=== PATIENT | male | born 1960 | race African-American/Black ===

== ENCOUNTER 2016-11-13 20:04 | Observation (INO) | payer MEDICAID ==
[~2016-11-13 20:04] MED LIST: NAPR500 PO; Z.0.NO CURRENT MEDS
[2016-11-13 20:05] VITALS: BP 188/124; PULSE 87; RESP 16; TEMP 98.4; O2SAT 99
--- NOTE | 2016-11-13 20:44 | PD ---
HPI Chief Complaint: Numbness/Tingling Time Seen by Provider: 20:39 Travel History International Travel<30 days: No Contact w/Intl Traveler<30days: No Traveled to known affect area: No History of Present Illness HPI 55-year-old male presents to the emergency department for evaluation of hypertension. He states that around 1915 this afternoon, he started with a headache behind his right eye. He states that he could not move his left arm for 15 minutes. He states the symptoms did resolve on their own. Patient reports history of hypertension. He is on lisinopril for hypertension. He also reports history of chronic back pain and is on Lortab. Patient is not on any anticoagulants. Patient states he had a similar episode occurred around 6 months ago where he cannot move his left arm. He states the symptoms eventually resolved on her own and he never followed up with a primary care physician or the emergency department. He states that his friends told him he could be having a TIA so he came to the emergency department concerned. He denies any history of CVA or TIA. Patient is a current tobacco user. Patient states headache is mild at this time. PFSH Past Medical History Gastrointestinal Disorders: Yes (ALCOHOLIC HAD GI BLEED 1 MONTH AGO, DID NOT GET F/U = NO MONEY) Ulcer: Yes (RECTAL BLEEDING ONE MONTH AGO. CAME TO ED. EVAL BY DR RAMACHANDRAN. TOLD TO GET F) Social History Alcohol Use: Yes (3 CANS BEER (ABOUT AVERAGE PER PATIENT)) Tobacco Use: Yes (1 PK PER DAY 27 YEARS) Substance Use: No Allergies-Medications (Allergen,Severity, Reaction): Coded Allergies: No Known Allergies (Verified , 11/13/16) Reported Meds & Prescriptions Reported Meds & Active Scripts Active Naprosyn (Naproxen) 500 Mg Tab 500 Mg PO BID Reported No Current Meds (Miscellaneous Medication) Misc Review of Systems Except as stated in HPI: all other systems reviewed are Neg Physical Exam Narrative GENERAL: Well-nourished, well-developed male patient, afebrile. SKIN: Focused skin assessment warm/dry. HEAD: Normocephalic. Atraumatic. EYES: No scleral icterus. No injection or drainage. NECK: Supple, trachea midline. No JVD or lymphadenopathy. CARDIOVASCULAR: Regular rate and rhythm without murmurs, gallops, or rubs. Bilateral radial and pedal pulses 2+. RESPIRATORY: Breath sounds equal bilaterally. No accessory muscle use. Lungs sounds are clear to auscultation GASTROINTESTINAL: Abdomen soft, non-tender, nondistended. MUSCULOSKELETAL: No cyanosis, or edema. BACK: Nontender without obvious deformity. No CVA tenderness. NEUROLOGICAL: Awake and alert. Cranial nerves II through XII intact. Motor and sensory grossly within normal limits. Five out of 5 muscle strength in all muscle groups. Normal speech. Finger to nose is normal bilaterally. Heel-to- liang is normal bilaterally. No focal neurological deficits. Data Data Last Documented VS Vital Signs Date Time Temp Pulse Resp B/P Pulse Ox O2 Delivery O2 Flow Rate FiO2 11/13/16 20:58 75 20 175/104 98 Room Air 11/13/16 20:05 98.4 Orders Electrocardiogram (11/13/16 20:38) Prothrombin Time / Inr (Pt) (11/13/16 20:38) Act Partial Throm Time (Ptt) (11/13/16 20:38) Complete Blood Count With Diff (11/13/16 20:38) Comprehensive Metabolic Panel (11/13/16 20:38) Creatine Kinase (Cpk) (11/13/16 20:38) Troponin I (11/13/16 20:38) Ct Brain W/O Iv Contrast(Rout) (11/13/16 20:38) Ecg Monitoring (11/13/16 20:38) Iv Access Insert/Monitor (11/13/16 20:38) Oximetry (11/13/16 20:38) Sodium Chloride 0.9% Flush (Ns Flush) (11/13/16 20:45) Aspirin (Aspirin) (11/13/16 22:15) Labs Laboratory Tests Test 11/13/16 21:10 White Blood Count 6.3 TH/MM3 Red Blood Count 5.65 MIL/MM3 Hemoglobin 15.9 GM/DL Hematocrit 48.4 % Mean Corpuscular Volume 85.7 FL Mean Corpuscular Hemoglobin 28.2 PG Mean Corpuscular Hemoglobin 32.9 % Concent Red Cell Distribution Width 13.6 % Platelet Count 217 TH/MM3 Mean Platelet Volume 7.3 FL Neutrophils (%) (Auto) 34.0 % Lymphocytes (%) (Auto) 52.8 % Monocytes (%) (Auto) 7.3 % Eosinophils (%) (Auto) 4.8 % Basophils (%) (Auto) 1.1 % Neutrophils # (Auto) 2.1 TH/MM3 Lymphocytes # (Auto) 3.3 TH/MM3 Monocytes # (Auto) 0.5 TH/MM3 Eosinophils # (Auto) 0.3 TH/MM3 Basophils # (Auto) 0.1 TH/MM3 CBC Comment DIFF FINAL Differential Comment Prothrombin Time 10.6 SEC Prothromb Time International 1.0 RATIO Ratio Activated Partial 26.6 SEC Thromboplast Time Sodium Level 141 MEQ/L Potassium Level 3.8 MEQ/L Chloride Level 106 MEQ/L Carbon Dioxide Level 26.8 MEQ/L Anion Gap 8 MEQ/L Blood Urea Nitrogen 15 MG/DL Creatinine 1.27 MG/DL Estimat Glomerular Filtration 71 ML/MIN Rate Random Glucose 95 MG/DL Calcium Level 9.6 MG/DL Total Bilirubin 0.2 MG/DL Aspartate Amino Transf 23 U/L (AST/SGOT) Alanine Aminotransferase 39 U/L (ALT/SGPT) Alkaline Phosphatase 102 U/L Total Creatine Kinase 132 U/L Troponin I LESS THAN 0.02 NG/ML Total Protein 7.6 GM/DL Albumin 3.9 GM/DL [facility] Medical Decision Making Medical Screen Exam Complete: Yes Emergency Medical Condition: Yes Medical Record Reviewed: Yes Interpretation(s) ct brain - CONCLUSION: Unremarkable noncontrast CT. Differential Diagnosis TIA versus CVA versus electrolyte abnormality versus intracranial hemorrhage Narrative Course 55-year-old male presents to the emergency department for evaluation of a headache and inability with the left arm that lasted for approximately 15 minutes. He reports a mild headache at this time and states that he has no issues moving his left arm. Neurological exam shows no focal deficits. EKG, CBC, CMP, CK, troponin, PT, PTT/INR, CT of the brain are ordered and pending. EKG shows sinus rhythm, heart rate 83, no acute ST changes. CBC shows no acute abnormality. CMP is unremarkable. CK is 132. Troponin is less than 0.02. Coags are unremarkable. CT of the brain is unremarkable. Patient is given aspirin 325 mg by mouth. Patient will be brought to the hospital for 23 observation for TIA. The patient verbalizes agreement and understanding. He states his primary care physician is Dr. Valdes. [facility] is paged for admission. Dr. Samano accepted admission. Diagnosis Primary Impression: TIA (transient ischemic attack) Qualified Code: G45.9 - Transient cerebral ischemia, unspecified type Admitting Information Admitting Physician Requests: Observation Meliza Oconnor November 13, 2016 20:44
[2016-11-13] MEDS ORDERED: SODIUM CHLORIDE 0.9% FLUSH 10 ML FLUSH IVF PRN (20:45)
[2016-11-13 20:58] VITALS: BP 175/104; PULSE 75; RESP 20; O2SAT 98
[2016-11-13 21:24] LABS: AUTOMATED NEUTROPHIL # 2.1 TH/MM3 (1.8-7.7); BASOPHIL # 0.1 TH/MM3 (0-0.2); BASOPHIL % 1.1 % (0.0-2.0); EOSINOPHIL # 0.3 TH/MM3 (0-0.4); EOSINOPHIL % 4.8 % (0.0-4.0); HEMATOCRIT 48.4 % (39.0-51.0); HEMO FLAGS DIFF FINAL; LYMPH % 52.8 % (9.0-44.0); LYMPHOCYTE # 3.3 TH/MM3 (1.0-4.8); MEAN CELL VOLUME 85.7 FL (80.0-100.0); MEAN CORPUSCULAR HEMOGLOBIN 28.2 PG (27.0-34.0); MEAN CORPUSCULAR HGB CONC 32.9 % (32.0-36.0); MONO % 7.3 % (0.0-8.0); PLATELET COUNT 217 TH/MM3 (150-450); RED BLOOD COUNT 5.65 MIL/MM3 (4.50-5.90); RED CELL DISTRIBUTION WIDTH 13.6 % (11.6-17.2); WHITE BLOOD COUNT 6.3 TH/MM3 (4.0-11.0)
[2016-11-13 21:38] LABS: APTT (PATIENT) 26.6 SEC (24.3-30.1); PROTHROMBIN TIME - PATIENT 10.6 SEC (9.8-11.6)
--- NOTE | 2016-11-13 21:39 | RADRPT ---
EXAM DATE/TIME: 11/13/2016 21:27 1 [facility] COMPARISON: No previous studies available for comparison. INDICATIONS : Left arm numbness with elevated blood pressure. RADIATION DOSE: 37.14 CTDIvol (mGy) MEDICAL HISTORY : None SURGICAL HISTORY : None. ENCOUNTER: Initial ACUITY: 1 week PAIN SCALE: 5/10 LOCATION: cranial TECHNIQUE: Multiple contiguous axial images were obtained of the head. Using automated exposure control and adj ustment of the mA and/or kV according to patient size, radiation dose was kept as low as reasonably a chievable to obtain optimal diagnostic quality images. FINDINGS: CEREBRUM: The ventricles are normal for age. No evidence of midline shift, mass lesion, hemorrhage or acute in farction. No extra-axial fluid collections are seen. POSTERIOR FOSSA: The cerebellum and brainstem are intact. The 4th ventricle is midline. The cerebellopontine angle i s unremarkable. EXTRACRANIAL: The visualized portion of the orbits is intact. SKULL: The calvaria is intact. No evidence of skull fracture. CONCLUSION: Unremarkable noncontrast CT. Toni Levy MD on November 13, 2016 at 21:37 Board Certified Radiologist. This report was verified electronically.
[2016-11-13 22:01] LABS: ANION GAP 8 MEQ/L (5-15); AST (GOT) 23 U/L (15-37); BICARBONATE 26.8 MEQ/L (21.0-32.0); BLOOD UREA NITROGEN 15 MG/DL (7-18); CHLORIDE 106 MEQ/L (98-107); GLOMERULAR FILTRATION RATE 71 ML/MIN (>89); POTASSIUM 3.8 MEQ/L (3.5-5.1); SODIUM (NA) 141 MEQ/L (136-145)
[2016-11-13 22:06] LABS: ALKALINE PHOSPHATASE 102 U/L (45-117); ALT (GPT) 39 U/L (12-78); CREATINE KINASE 132 U/L (39-308); TOTAL BILIRUBIN ADULT 0.2 MG/DL (0.2-1.0)
[2016-11-13] MEDS ORDERED: ASPIRIN 325 MG TAB PO ONE (22:15)
[2016-11-14] VITALS (9 sets, daily range): BP systolic 122–156; BP diastolic 88–102; PULSE 70–89; RESP 18–20; TEMP 97.2–98.2; O2SAT 94–98
[2016-11-14] MEDS ORDERED: SODIUM CHLOR 0.9% 1000 ML INJ 1,000 ML IV SCH (01:57)
[2016-11-14] MEDS ORDERED: ONDANSETRON HCL 4 MG/2 ML VIAL IVP PRN (02:00)
[2016-11-14] MEDS ORDERED: SODIUM CHLORIDE 0.9% FLUSH 10 ML FLUSH IV FLUSH PRN (02:00)
[2016-11-14] MEDS ORDERED: NALOXONE HCL 0.4 MG/ML AMP IV PRN (02:00)
[2016-11-14] MEDS ORDERED: ACETAMINOPHEN 325 MG TAB PO PRN (02:00)
--- NOTE | 2016-11-14 02:29 | HHI.HP ---
HPI Service [facility] Hospitalists Primary Care Physician Unknown Admission Diagnosis TIA Diagnoses: Chief Complaint: Right-sided headache with left upper extremity weakness Travel History International Travel<30 Days: No Contact w/Intl Traveler <30 Da: No Traveled to Known Affected Are: No History of Present Illness This is a pleasant 55-year-old Afro-Italian gentleman with past medical history which includes alcoholism, GI bleeding and hypertension. Patient reports at 7:15 PM on 11/13/2016 he began to have a right sided headache located behind his right eye described as severe sharp pressure sensation. After the headache he began to have numbness to his left hand followed by inability to move his left upper extremity. The event lasted approximately 15 minutes and resolved spontaneously. Patient reports he had a similar event approximally 5- 6 months ago where he had right-sided headache inability to move his left upper extremity at that time he had visual changes the event lasted 30 minutes also resolved spontaneously- he did not seek treatment at that time. Patient discussed his events with his friend who is a nurse person and told him to come to the emergency department for further evaluation and treatment concerning for TIA. Patient denies history of CVA or TIA in the past. Patient denies chest pain, shortness of breath, nausea, vomiting, diarrhea, constipation, fevers, chills, visual changes or loss of consciousness. Review of Systems Except as stated in HPI: all other systems reviewed are Neg Past Family Social History Past Medical History alcoholism, GI bleeding and hypertension. Past Surgical History denies prior surgery Reported Medications Lisinopril 20 mg by mouth daily Allergies: Coded Allergies: No Known Allergies (Verified , 11/13/16) Active Ordered Medications Current Medications Medications (Trade) Dose Ordered Sig/Nhi Route Start Time Stop Time Status Last Admin (NS 1000 ml Inj) 1,000 ml @ 50 mls/hr Q20H IV 11/14/16 01:57 (NS Flush) 2 ml UNSCH PRN IV FLUSH 11/14/16 02:00 (NS Flush) 2 ml BID IV FLUSH 11/14/16 09:00 (Tylenol) 650 mg Q4H PRN PO 11/14/16 02:00 (Zofran Inj) 4 mg Q6H PRN IVP 11/14/16 02:00 (Narcan Inj) 0.4 mg UNSCH PRN IV 11/14/16 02:00 (Ecotrin Ec) 325 mg DAILY PO 11/14/16 09:00 Family History Mother secondary to [place] patient does not recall age Father secondary to [place] unknown type patient does not recall age Social History ETOH history of alcoholism reports that he drinks only 1 beer occasionally now tobacco use 0.5 PPD since he was a teenager denies illicit drug use Physical Exam Vital Signs Vital Signs Date Time Temp Pulse Resp B/P Pulse Ox O2 Delivery O2 Flow Rate FiO2 11/14/16 02:08 97 11/14/16 00:58 78 18 122/88 97 Room Air 11/13/16 20:58 75 20 175/104 98 Room Air 11/13/16 20:05 98.4 87 16 188/124 99 Room Air Physical Exam GENERAL: This is a well-nourished, well-developed patient, in no apparent distress. SKIN: No rashes, ecchymoses or lesions. Cool and dry. HEAD: Atraumatic. Normocephalic. No temporal or scalp tenderness. EYES: Pupils equal round and reactive. Extraocular motions intact. No scleral icterus. No injection or drainage. CARDIOVASCULAR: Regular rate and rhythm without murmurs, gallops, or rubs. RESPIRATORY: Clear to auscultation. Breath sounds equal bilaterally. No wheezes , rales, or rhonchi. GASTROINTESTINAL: Abdomen soft, non-tender, nondistended. No hepato-splenomegaly , or palpable masses. No guarding. MUSCULOSKELETAL: Extremities without clubbing, cyanosis, or edema. No joint tenderness, effusion, or edema noted. No calf tenderness. Negative Homans sign bilaterally. NEUROLOGICAL: Awake and alert. No focal deficits. Motor and sensory grossly within normal limits. 4-5 out of 5 muscle strength in all muscle groups. Normal speech. Laboratory Laboratory Tests Test 11/13/16 21:10 White Blood Count 6.3 Red Blood Count 5.65 Hemoglobin 15.9 Hematocrit 48.4 Mean Corpuscular Volume 85.7 Mean Corpuscular Hemoglobin 28.2 Mean Corpuscular Hemoglobin 32.9 Concent Red Cell Distribution Width 13.6 Platelet Count 217 Mean Platelet Volume 7.3 Neutrophils (%) (Auto) 34.0 Lymphocytes (%) (Auto) 52.8 Monocytes (%) (Auto) 7.3 Eosinophils (%) (Auto) 4.8 Basophils (%) (Auto) 1.1 Neutrophils # (Auto) 2.1 Lymphocytes # (Auto) 3.3 Monocytes # (Auto) 0.5 Eosinophils # (Auto) 0.3 Basophils # (Auto) 0.1 CBC Comment DIFF FINAL Differential Comment Prothrombin Time 10.6 Prothromb Time International 1.0 Ratio Activated Partial 26.6 Thromboplast Time Sodium Level 141 Potassium Level 3.8 Chloride Level 106 Carbon Dioxide Level 26.8 Anion Gap 8 Blood Urea Nitrogen 15 Creatinine 1.27 Estimat Glomerular Filtration 71 Rate Random Glucose 95 Calcium Level 9.6 Total Bilirubin 0.2 Aspartate Amino Transf 23 (AST/SGOT) Alanine Aminotransferase 39 (ALT/SGPT) Alkaline Phosphatase 102 Total Creatine Kinase 132 Troponin I LESS THAN 0.02 Total Protein 7.6 Albumin 3.9 Result Diagram: 11/13/16210911/13/162109 Imaging Last Impressions Head CT 11/13/162037 Signed Impressions: Service Date/Time: Sunday, November 13, 2016 21:27 - CONCLUSION: Unremarkable noncontrast CT. Toni Levy MD Assessment and Plan Problem List: (1) TIA (transient ischemic attack) ICD Code: G45.9 Status: Acute Assessment and Plan This is a pleasant 55-year-old Afro-Italian gentleman with past medical history which includes alcoholism in the past, GI bleeding and hypertension. Patient reports on 7:15 PM on 11/13/2016 he began to have a right sided headache located behind his right eye described as sharp pressure sensation after the headache he began to have numbness to his left hand followed by inability to move his left upper extremity. The event lasted approximately 15 minutes and resolved spontaneously. Left upper extremity focal weakness with right sided headache- acute TIA versus CVA versus complex migraine- acute CT of the head reviewed no acute findings MRI brain without contrast ordered and pending Ultrasound bilateral carotid arteries ordered and pending Echocardiogram ordered and pending Bedrest with Head of bed flat Continuous telemetry monitoring Lipid profile in a.m., hemoglobin A1c in a.m. Permissive hypertension Neurology consultation placed Serial neuro checks bedside swallow eval Hypertension- chronic currently on Lisinopril at home- will hold lisinopril at this time and allow permissive hypertension in light of recent CVA versus TIA History of EtOH abuse CIWA protocol with folic acid and thiamine monitor for signs and symptoms of withdrawal DVT prophylaxis with SCDs will avoid chemical DVT prophylaxis in light of recent GI bleed Discussed with ER provider, nursing, patient and Dr. Samano Attending Statement The exam, history, and the medical decision-making described in the above note were completed with the assistance of the mid-level provider. I reviewed and agree with the findings presented. I attest that I had a [id number] encounter with the patient on the same day, and personally performed and documented my assessment and findings in the medical record. Improving right sided headache and resolved left-sided weakness. Blood pressure 133/90 and heart rate 77 respiratory 20 temperature 98 HEENT normocephalic atraumatic pupils equally reactive to light CVS regular rate and rhythm S1 and S2 Lungs clear to auscultation Neuro exam: Nonfocal alert and oriented cranial nerves intact motor and sensorium within normal limits. Head CT unremarkable EKG with no A. fib TIA versus A. fib continue aspirin, permissive hypertension and stroke workup. Risk factor modification Problem Qualifiers (1) TIA (transient ischemic attack): Qualified Code: G45.9 - Transient cerebral ischemia, unspecified type Vera Abrams November 14, 2016 02:29 Rush Chicas MD November 14, 2016 10:06
[2016-11-14 06:15] LABS: HDL CHOLESTEROL 42.3 MG/DL (40.0-60.0); LDL CHOLESTEROL 169 MG/DL (0-99)
[2016-11-14] MEDS ORDERED: LORazepam 2 MG/ML VIAL IV PUSH ONE (09:00)
[2016-11-14] MEDS: ASPIRIN EC 325 MG TABEC PO SCH (10:25)
[2016-11-14] MEDS: SODIUM CHLORIDE 0.9% FLUSH 10 ML FLUSH IV FLUSH SCH ×2 (10:25→22:48)
--- NOTE | 2016-11-14 10:45 | RADRPT ---
EXAM DATE/TIME: 11/14/2016 09:41 [facility] COMPARISON: No previous studies available for comparison. INDICATIONS : Left upper extremity weakness. MEDICAL HISTORY : Hypertension. Arthritis. SURGICAL HISTORY : None. ENCOUNTER: Subsequent ACUITY: 2 day PAIN SCORE: 0/10 LOCATION: head. Please note a normal MRA of the brain does not entirely exclude the possibility of a small aneurysm, nor the possibility of distal intracranial vessel disease. TECHNIQUE: 3D time of flight MRA was performed. Source images, multiplanar STS MIP, and 3D volume MIP reconstru ctions were reviewed. FINDINGS: There is excellent visualization of the major intracranial arteries out to the second-order branch ve ssels. There is no evidence for aneurysm, vessel truncation or stenosis, and no evidence for vascula r malformation. The middle, anterior and posterior cerebral arteries appear normal. Anterior communic ating artery noted. No posterior communicating arteries. Vertebrobasilar junction normal CONCLUSION: 1. No stenosis or aneurysm. 2. Normal variants. Jorge Hanks MD on November 14, 2016 at 10:42 Board Certified Radiologist. This report was verified electronically.
--- NOTE | 2016-11-14 10:48 | RADRPT ---
EXAM DATE/TIME: 11/14/2016 09:41 [facility] COMPARISON: No previous studies available for comparison. INDICATIONS : Left upper extremity weakness. MEDICAL HISTORY : Hypertension. Arthritis. SURGICAL HISTORY : None. ENCOUNTER: Subsequent ACUITY: 2 day PAIN SCORE: 0/10 LOCATION: head. TECHNIQUE: Multiplanar, multisequence MRI of the brain was performed without contrast. FINDINGS: CEREBRUM: The ventricles are normal for age. No evidence of midline shift, mass lesion, hemorrhage or acute in farction. No extraaxial fluid collections are seen. The pituitary gland and suprasellar cistern are normal in configuration. WHITE MATTER: Scattered foci of bright T2 signal abnormalities are seen in the white matter and brainstem. POSTERIOR FOSSA: The cerebellum is intact. The 4th ventricle is midline. The cerebellopontine angle is unremarkable. The cerebellar tonsils are normal in position. DIFFUSION IMAGING: No focal areas of restricted diffusion are seen. No evidence of acute infarction. EXTRACRANIAL: The visualized portions of the orbits and paranasal sinuses are unremarkable. CONCLUSION: 1. Chronic ischemic small vessel vasculopathy with similar changes in the brainstem. 2. No acute infarction. Jorge Hanks MD on November 14, 2016 at 10:44 Board Certified Radiologist. This report was verified electronically.
--- NOTE | 2016-11-14 11:43 | RADRPT ---
EXAM DATE/TIME: 11/14/2016 10:32 [facility] COMPARISON: No previous studies available for comparison. INDICATIONS : Transient ischemic attack. MEDICAL HISTORY : Hypertension. Ulcer. GI bleed. Low back tear. HX of ETOH abuse. SURGICAL HISTORY : ENCOUNTER: Initial ACUITY: 1 day PAIN SCORE: 0/10 LOCATION: Bilateral neck PEAK SYSTOLIC VELOCITIES (cm/sec): ICA/CCA RATIO: Right: 1.5 Left: 1.0 ICA: Right: 86 Left: 87 CCA: Right: 56 Left: 84 ECA: Right: 49 Left: 47 VERTEBRAL: Right: 53 antegrade Left: 49 antegrade Elevated flow velocities and ICA/CCA ratios have been found to correlate with increased degrees of vessel stenosis, calculated as percentage of diameter relative to a normal segment of distal ICA/CCA FINDINGS: RIGHT CAROTID: No significant stenosis is visualized. The waveforms are within normal limits. LEFT CAROTID: No significant stenosis is visualized. The waveforms are within normal limits. VERTEBRAL ARTERIES: Antegrade flow is seen in both vertebral arteries. MISCELLANEOUS: None. CONCLUSION: No evidence of flow-limiting carotid stenosis. Salomon Mora MD on November 14, 2016 at 11:41 Board Certified Radiologist. This report was verified electronically.
[2016-11-14] MEDS: amLODIPine BESYLATE 5 MG TAB PO SCH (14:49)
[2016-11-14 16:32] LABS: HEMOGLOBIN A1b 0.9 %; HEMOGLOBIN Ao 85.1 %; HEMOGLOBIN LA1C 1.9 %; HEMOGLOBIN P3 3.7 %
[2016-11-14] MEDS ORDERED: LORazepam 2 MG TAB PO PRN (19:30)
[2016-11-14] MEDS ORDERED: LORazepam 2 MG/ML VIAL IV PUSH PRN ×4 (19:30)
[2016-11-14] MEDS ORDERED: FLUMAZENIL 0.5 MG/5 ML VIAL IV PUSH PRN (19:30)
[2016-11-14] MEDS ORDERED: LORazepam 1 MG TAB PO PRN (19:30)
--- NOTE | 2016-11-14 19:37 | EKG ---
Date Performed: 11/13/2016 Time Performed: 20:56:14 PTAGE: 55 years EKG: Sinus rhythm POSSIBLE LEFT ATRIAL ENLARGEMENT POSSIBLE RIGHT VENTRICULAR CONDUCTION DELAY BORDERLINE ECG NO PREVIOUS TRACING DOCTOR: Malena Aguayo Interpretating Date/Time 11/14/2016 19:36:33
[2016-11-14] MEDS ORDERED: ATORVASTATIN 20 MG TAB PO SCH (21:00)
[2016-11-15 00:24] VITALS: BP 122/86; PULSE 80; RESP 17; TEMP 97.8; O2SAT 96
[2016-11-15 04:23] VITALS: BP 110/77; PULSE 82; RESP 17; TEMP 97.3; O2SAT 93
[2016-11-15 04:23] LABS: AUTOMATED NEUTROPHIL # 2.5 TH/MM3 (1.8-7.7); BASOPHIL # 0.1 TH/MM3 (0-0.2); BASOPHIL % 0.9 % (0.0-2.0); EOSINOPHIL # 0.3 TH/MM3 (0-0.4); EOSINOPHIL % 4.9 % (0.0-4.0); HEMATOCRIT 50.6 % (39.0-51.0); HEMO FLAGS DIFF FINAL; LYMPH % 49.5 % (9.0-44.0); LYMPHOCYTE # 3.2 TH/MM3 (1.0-4.8); MEAN CELL VOLUME 85.2 FL (80.0-100.0); MEAN CORPUSCULAR HEMOGLOBIN 28.2 PG (27.0-34.0); MEAN CORPUSCULAR HGB CONC 33.1 % (32.0-36.0); NEUT % 37.7 % (16.0-70.0); PLATELET COUNT 249 TH/MM3 (150-450); RED BLOOD COUNT 5.93 MIL/MM3 (4.50-5.90); RED CELL DISTRIBUTION WIDTH 13.6 % (11.6-17.2); WHITE BLOOD COUNT 6.5 TH/MM3 (4.0-11.0)
[2016-11-15 04:39] LABS: POTASSIUM 3.8 MEQ/L (3.5-5.1)
--- NOTE | 2016-11-15 05:29 | MB ---
cc: SOBEIDA DUFF M.D. DATE OF CONSULTATION 11/14/2016 REASON FOR CONSULTATION Left-sided weakness. HISTORY OF PRESENT ILLNESS Mr. Abdi is a 55-year-old man who was well until he suddenly developed a sharp pain in the right eye and then got weak in the left arm and left hand. This has since improved. He is back to normal now. He had no weakness of the leg, no slurred speech or other changes. Denies any prior history of migraine headaches. PAST MEDICAL HISTORY Remarkable for - 1. History of alcohol abuse. 2. Hypertension. 3. GI bleed. MEDICATIONS Lisinopril 20 mg daily. ALLERGIES None known. SOCIAL HISTORY Drinks alcohol daily. He does smoke. Denies drug abuse. NEUROLOGIC EXAMINATION Blood pressure is 140/93, pulse 80, respiratory rate is 20, temperature 99 degrees. Higher cortical functions normal. Cranial nerves II-XII are normal in detail. On motor exam he has got 5/5 strength of all groups in both upper and lower extremities. There is no drift. Fine motor skills normal. Reflexes are symmetric. IMAGING STUDIES MRI OF THE BRAIN - Within normal limits. MRA BRAIN - Normal. CAROTID ULTRASOUND - Normal. CT BRAIN - Normal. EKG - Sinus rhythm, possible left atrial enlargement. LABORATORY DATA The white count is 6300, hemoglobin 15.9, hematocrit 48%, platelets 217,000. PT 10.6, INR 1, APTT 26.6. Sodium is 141, potassium 3.8, chloride 106, CO2 26.8, BUN is 15, creatinine 1.27. Cholesterol 257, LDL 169, triglycerides 230. IMPRESSION Probable TIA, now resolved. RECOMMENDATIONS 1. Aspirin 325 mg daily. 2. Because of the high LDL, recommend statin therapy as well. 3. Given his relative young age, we will also check hypercoagulable workup. 4. Also recommend evaluation by cardiology as an outpatient to consider a transesophageal echocardiogram if the patient is stable neurologically. 5. We will obtain an echocardiogram. If that is fine with no source of emboli and the patient is stable, he can be discharged home. 6. Followup with me in 2 weeks as an outpatient. MD MOISE Allison/CHAPIS /4:51 PM /5:22 AM
[2016-11-15 07:56] VITALS: BP 127/80; PULSE 84; RESP 21; TEMP 97.5; O2SAT 93
[2016-11-15 08:00] VITALS: PULSE 76
--- NOTE | 2016-11-15 08:24 | EC ---
Study Study Date:11/14/2016 STUDY CONCLUSIONS SUMMARY - Procedure narrative: Image quality was poor. The study was technically limited due to poor acoustic window availability. - Left ventricle: The cavity size was normal. Systolic function was probably normal. In limited views, the estimated ejection fraction was in the range of 55% to 60%. Although no diagnostic regional wall motion abnormality was identified, this possibility cannot be completely excluded on the basis of this study. If LV function is below 40, please consider prescribing an ACEI or ARB or document rationale for non-use. PROCEDURE DATA STUDY STATUS: Elective. Procedure: Transthoracic echocardiography. Image quality was poor. The study was technically limited due to poor acoustic window availability. Scanning was performed from the parasternal, apical, and subcostal acoustic windows. Study completion: The patient tolerated the procedure well. Transthoracic echocardiography. M-mode, complete 2D, complete spectral Doppler, and color Doppler. Patient status: Inpatient. CARDIAC ANATOMY LEFT VENTRICLE: The cavity size was normal. Systolic function was probably normal. In limited views, the estimated ejection fraction was in the range of 55% to 60%. Although no diagnostic regional wall motion abnormality was identified, this possibility cannot be completely excluded on the basis of this study. AORTIC VALVE: The valve appears to be grossly normal. Probably trileaflet. Doppler: There was no stenosis. No significant regurgitation. Valve area: 2.76cm^2 (Vmax). MITRAL VALVE: The valve appears to be grossly normal. Doppler: There was no evidence for stenosis. No significant regurgitation. LEFT ATRIUM: The atrium was normal in size. RIGHT VENTRICLE: Not visualized. PULMONIC VALVE: Not visualized. TRICUSPID VALVE: Not well visualized. BASIC MEASUREMENTS ADULT NORMAL Left ventricle LV internal dimension, ED, chordal level, *40.1 mm 43-52 PLAX LV internal dimension, ES, chordal level, 29.5 mm 23-38 PLAX Fractional shortening, chordal level, PLAX *26 % >29 LV posterior wall thickness, ED 8.5 mm IVS/LVPW ratio, ED 1.03 <1.3 Ventricular septum Septal thickness, ED 8.77 mm Aortic valve Leaflet separation 20 mm 15-26 BASIC MEASUREMENTS ADULT NORMAL Aortic valve Leaflet separation 20 mm 15-26 Aorta Root diameter, ED 29 mm 20-37 Left atrium Anterior-posterior dimension, ES 25 mm 19-40 LA/aortic root ratio 0.86 DOPPLER MEASUREMENTS ADULT NORMAL Aortic valve Peak velocity, S 86.9 cm/s Valve area, Vmax 2.76 cm^2 Mitral valve Peak E-wave velocity 42.9 cm/s Peak A-wave velocity 58.2 cm/s Deceleration time 194 ms 150-230 Peak E/A ratio 0.7 Pulmonic valve Peak velocity, S 89.6 cm/s LEGEND: Mean values are shown as u=mean value. Asterisk (*) arnett values outside specified normal range. Prepared and signed by Shant Gomez [id number]
[2016-11-15] MEDS ORDERED: FOLIC ACID 1 MG TAB PO SCH (09:00)
[2016-11-15] MEDS ORDERED: THIAMINE HCL 100 MG TAB PO SCH (09:00)
[2016-11-15] MEDS ORDERED: ATOR20TA15 PO (09:08)
[2016-11-15] MEDS ORDERED: AMLO5 PO (09:08)
[2016-11-15] MEDS ORDERED: ASPI325T27 PO (09:08)
--- NOTE | 2016-11-15 09:15 | HHI.PR ---
Subjective Remarks Follow-up for TIA. The patient reports that symptoms have resolved. He feels well and wants to go home. He denies any weakness, numbness, tingling, vision problems, headache, swallowing difficulties, speech difficulties. He states he was taking medicine for blood pressure, confirmed with RN, lisinopril 20 mg. He states that he has a follow-up appointment coming up with his PCP. Also discussed with the patient's fiance over the phone per patient's request. Objective Vitals Vital Signs Date Time Temp Pulse Resp B/P Pulse Ox O2 Delivery O2 Flow Rate FiO2 11/15/16 07:56 97.5 84 21 127/80 93 11/15/16 04:23 97.3 82 17 110/77 93 11/15/16 00:24 97.8 80 17 122/86 96 11/14/16 20:33 98.2 89 18 133/93 94 11/14/16 16:12 98.2 80 20 140/93 96 11/14/16 11:09 98.0 81 20 138/92 96 I/O 11/14/16 11/14/16 11/14/16 11/15/16 11/15/16 11/15/16 07:00 15:00 23:00 07:00 15:00 23:00 Intake Total 1200 ml 200 ml Output Total 1200 ml Balance 0 ml 200 ml Intake Oral 800 ml 200 ml IV Total 400 ml Output Urine Total 1200 ml # Bowel Movements 1 Result Diagram: 11/15/16 0335 11/15/16 0335 Imaging Last Impressions Head Magnetic Resonance Angiography 11/14/16 0000 Signed Impressions: Service Date/Time: Monday, November 14, 2016 09:41 - CONCLUSION: 1. No stenosis or aneurysm. 2. Normal variants. Jorge Hanks MD Carotid Artery Ultrasound 11/14/16 0000 Signed Impressions: Service Date/Time: Monday, November 14, 2016 10:32 - CONCLUSION: No evidence of flow-limiting carotid stenosis. Salomon Mora MD Brain MRI 11/14/16 0000 Signed Impressions: Service Date/Time: Monday, November 14, 2016 09:41 - CONCLUSION: 1. Chronic ischemic small vessel vasculopathy with similar changes in the brainstem. 2. No acute infarction. Jorge Hanks MD Head CT [id number] Signed Impressions: Service Date/Time: Sunday, November 13, 2016 21:27 - CONCLUSION: Unremarkable noncontrast CT. Toni Levy MD Objective Remarks GENERAL: Well-developed well-nourished. In no acute distress. SKIN: Warm and dry. No lesions noted. HEENT: Normocephalic. Pupils equal and round. Mucous membranes pink and moist. CARDIOVASCULAR: Regular rate and rhythm. No murmur appreciated. RESPIRATORY: No accessory muscle use. Clear to auscultation. Breath sounds equal bilaterally. GASTROINTESTINAL: Abdomen soft, non-tender, nondistended. Bowel sounds x4. MUSCULOSKELETAL: No obvious deformities. No clubbing or cyanosis. No edema. Positive straight leg raise on the right. NEUROLOGICAL: Awake and alert. No focal neurological deficits. Moves upper and lower extremities spontaneously. Normal speech. Strength 5/5 in all extremities except for right lower extremity which is limited due to pain. PSYCHIATRIC: Appropriate mood and affect; insight and judgment normal. A/P Problem List: (1) TIA (transient ischemic attack) ICD Code: G45.9 Status: Acute Assessment and Plan This is a pleasant 55-year-old Afro[place] gentleman with past medical history which includes alcoholism in the past, GI bleeding and hypertension. Patient reports on 7:15 PM on 11/13/2016 he began to have a right sided headache located behind his right eye described as sharp pressure sensation after the headache he began to have numbness to his left hand followed by inability to move his left upper extremity. The event lasted approximately 15 minutes and resolved spontaneously. TIA Reviewed: CT of the head no acute findings. MRI brain with chronic ischemic small vessel changes, no acute infarction. Ultrasound bilateral carotid arteries with no evidence of stenosis. Echocardiogram with normal systolic function EF 5560 %. Lipid profile with elevated LDL and triglycerides. MRI brain with no stenosis or aneurysm. Hemoglobin A1c 5.9. Neurology consulted, and agrees with TIA, cleared for discharge and outpatient follow-up Serial neuro checks PT/OT/ST Aspirin and statin Hypertension- chronic Lisinopril dose was not reconciled initially. Patient was started on amlodipine with good effect, we'll discontinue lisinopril and continue on amlodipine. History of EtOH abuse CIWA protocol with folic acid and thiamine. monitor for signs and symptoms of withdrawal DVT prophylaxis with SCDs will avoid chemical DVT prophylaxis in light of recent GI bleed Discharge Planning Discharge patient to home Condition on discharge: Improved Heart healthy Diet as tolerated Regular activity Rx written: Aspirin, Lipitor, amlodipine Follow-up with primary care physician and neurology Problem Qualifiers (1) TIA (transient ischemic attack): Qualified Code: G45.9 - Transient cerebral ischemia, unspecified type Fly Addison November 15, 2016 09:15
[2016-11-15] MEDS: amLODIPine BESYLATE 5 MG TAB PO SCH (10:00)
[2016-11-15] MEDS: ASPIRIN EC 325 MG TABEC PO SCH (10:00)
== END 2016-11-15 11:08 | disposition home or self-care (01) ==
LOC: NEPC 20:04 → NEDA 22:27 → NEPFCDU 11-14 02:52
PROVIDERS: ADMIT Internal Medicine; ATTEND Internal Medicine
DX: G45.9 Transient cerebral ischemic attack, unspecified (principal); I10 Essential (primary) hypertension; G89.29 Other chronic pain; M54.9 Dorsalgia, unspecified; F17.200 Nicotine dependence, unspecified, uncomplicated; F10.20 Alcohol dependence, uncomplicated; Z87.11 Personal history of peptic ulcer disease
CPT/HCPCS: 70450; 70544; 70551; 80048; 80053; 80061; 82550; 83036; 84484; 85025; 85610; 85730; 92610; 93005; 93306; 93880; 97162; 97166; 99285; G0378; G8987; G8988; G8996; G8997; G8998; J2060; J7030